=== PATIENT | female | born 1935 | race African-American/Black ===

== ENCOUNTER 2017-09-20 20:48 | Inpatient (IN) | payer MEDICARE, OTHER ==
[2017-09-20] MEDS ORDERED: Fentanyl 100 MCG/2 ML VIAL SLOW IVP PRN (22:48)
[2017-09-20] MEDS ORDERED: Ondansetron HCl/PF 4 MG/2 ML Vial IVP PRN (22:49)
[2017-09-20] MEDS ORDERED: Calcium Carbonate 500 MG ChewTAB PO PRN (22:50)
[2017-09-20 23:01] VITALS: BMI 31.6
[2017-09-20] MEDS ORDERED: traMADol HCl 50 MG TAB PO PRN (23:15)
[2017-09-21] MEDS: Piperacillin/Tazobactam 3.375 GM in Sodium Chloride 0.9% 100 ML IVPB SCH ×4 (00:09→17:56)
[2017-09-21] MEDS: Dextrose 5 % And 0.9 % NaCl 1,000 ML IV SCH ×3 (00:09→17:53)
[2017-09-21] MEDS: Acetaminophen 325 MG TAB PO PRN (00:10)
[2017-09-21] MEDS: traMADol HCl 50 MG TAB PO PRN ×3 (00:26→15:36)
[2017-09-21 05:31] LABS: #Basophils 0.1 thou/uL (0.0-0.2); #Lymphocytes 2.1 thou/uL (1.20-3.40); #Monocytes 0.5 thou/uL (0.11-0.59); #Neutrophils 5.6 thou/uL (1.40-6.50); %Eosinophils 0.2 % (0.0-10.0); %Lymphocytes 24.7 % (21.0-51.0); %Monocytes 6.2 % (0.0-10.0); Hemoglobin 11.2 g/dL (12.0-16.0); Mean Corpuscular HGB CONC 33.1 g/dL (32.0-36.0); Mean Corpuscular Hemoglobin 33.5 pg (27.0-31.0); Mean Platelet Volume 6.5 fL (7.4-10.4); Platelet Count 196 thou/uL (130-400); RBC Distribution Width 12.3 % (11.5-14.5); Red Blood Cell (RBC) Count 3.34 mill/uL (4.20-5.40); White Blood Cell (WBC) Count 8.3 thou/uL (4.8-10.8)
[2017-09-21 05:37] LABS: INR-International Normal Ratio 1.1; Prothrombin Time 14.6 SEC (12.0-14.7)
[2017-09-21 06:03] LABS: ALT (SGPT) 78 U/L (8-55); AST (SGOT) 102 U/L (5-34); Albumin 3.3 g/dL (3.4-4.8); Alkaline Phosphatase 188 U/L (40-150); Anion Gap 6 mmol/L (10-20); BUN (Urea Nitrogen) 10 mg/dL (9.8-20.1); Bilirubin, Total 1.2 mg/dL (0.2-1.2); Calc. Creatinine Clearance 72 mL/min (70-130); Calcium 8.5 mg/dL (7.8-10.44); Carbon Dioxide 28 mmol/L (23-31); Chloride 106 mmol/L (98-107); Estimated GFR-MDRD 79; Globulin 3.1 g/dL (2.4-3.5); Glucose 130 mg/dL (83-110); Lipase 4 U/L (8-78); Potassium 3.6 mmol/L (3.5-5.1); Protein, Total 6.4 g/dL (6.0-8.3); Sodium 136 mmol/L (136-145)
--- NOTE | 2017-09-21 07:14 | HP ---
HISTORY OF PRESENT ILLNESS: Ms. Ackerman is a pleasant 81-year-old -[place] female. She is ac companied by 2 daughters. She is a transfer from [facility] today for choledocholithiasis and sym ptomatic cholelithiasis. ERCP was not available there at hospital this weekend. She has been having some epigastric pain and vomiting for about the past 3 days and has not eaten much. She has had no fever or chills. For the past 3 months, she has been having nausea several times per day and some vo miting at times. Sometimes, it is worse with eating, other times does not really matter. She has richmond d no fever or chills. She has noted no icterus or jaundice. She has had a little bit of constipatio n, which she attributes to taking Columbia for chronic arthritis. She has been vomiting mainly clear th ings, had a little bit of coffee ground in color today apparently. She has really been unable take h er blood pressure regular medications secondary to the nausea and vomiting. She was at [facility] today in the emergency room, she was found to have mildly elevated LFTs. Her vital signs w ere stable. She had glucose of 114, lipase of 6, AST and ALT of 131 and 82 and a hematocrit of 36. Urinalysis was negative. Troponins were negative. Creatinine was 0.9, BUN 15, alkaline phosphatase was 234, AST and ALT were 131 and 82. Bilirubin was 2. Lactic acid 0.7. White count 8.1, platelets 229. Ultrasound showed cholelithiasis without any gallbladder wall thickening or free fluid. There was also a 1.6 cm common bile duct and 1 cm echogenic focus in the distal, bile duct suggestive of a stone. At the hospital there, she received IV fluids, fentanyl 50 one time, Zofran, Pepcid, normal saline and Zosyn. Presently, she states she has some mild pain. She has had no fever or chills. Sh nicki has had no further vomiting. Her pain is under control. Last received pain medicine at 6:00 p.m. ALLERGIES: None known. PAST MEDICAL HISTORY: Osteoarthritis, for which she takes hydrocodone, hypertension. 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 MEDICATIONS: She is on Columbia 10 every 6 hours p.r.n. for pain, bisoprolol 5/6.25 daily in the mornin g, losartan 50 mg daily in the morning, amlodipine 5 mg daily in the morning, Premarin 0.625 mg daily in the morning. SOCIAL HISTORY: The patient does not smoke, drink or use drugs. REVIEW OF SYSTEMS: Negative for chest pain, shortness of breath, dyspnea on exertion, dysphagia, eder nophagia. She has had a previous screening colonoscopy. She has no rectal bleeding. She has some c onstipation. She denies any history of lung disease or heart disease. ASSESSMENT: Symptomatic cholelithiasis with choledocholithiasis. There are no signs of cholangitis or pancreatitis at this time. Stone in her bile duct, it is probably there for some time. She has b een symptomatic for several months, but just worse in the past 3 days. PLAN: ERCP tomorrow with attempted removal of large common duct stone. I have explained that this m ay be able to be removed simply with a balloon or may require lithotripsy. Finally, if it cannot be removed, we have to place the stent to ensure we prevent obstruction have that removed at a lat er date once it has worn down to a smaller size or possibly transfer to another facility. In [facility], she will have a cholecystectomy once we clear her duct due to the number of stones and recurrent s ymptoms she has had over the time. We will place her on Protonix and she had a little bit of hematemesis. Zofran. Continue Zosyn. Con tinue her blood pressure medicines, antiemetics and IV fluids. We will repeat labs in the morning. Risks, benefits, and possible complications of ERCP including perforation, bleeding, reaction to medi cation, aspiration and pancreatitis were explained to the patient's daughters with the drawing of the anatomy.
[2017-09-21] MEDS: Pantoprazole 40 MG VIAL IVP SCH (08:43)
[2017-09-21] MEDS: Amlodipine 5 MG TAB PO SCH (08:44)
[2017-09-21] MEDS: Losartan 25 MG TAB PO SCH (08:44)
[2017-09-21] MEDS: Bisoprolol Fumarate/HCTZ 5 mg/6.25 mg Tablet PO SCH (08:51)
[2017-09-21] MEDS ORDERED: Fentanyl 100 MCG/2 ML VIAL ONE (11:57)
[2017-09-21] MEDS ORDERED: Iothalamate Meglumine 60% 50 ML VIAL FS ONE (12:07)
[2017-09-21] MEDS ORDERED: B & O ONE (12:07)
[2017-09-21] MEDS ORDERED: Indomethacin 50 MG SUPP ONE (12:08)
[2017-09-21] MEDS ORDERED: Promethazine HCl 25 MG/ML VIAL IM PRN (13:17)
[2017-09-21] MEDS ORDERED: HYDROmorphone 2 MG/ML VIAL SLOW IVP PRN (13:17)
[2017-09-21] MEDS ORDERED: Promethazine HCl 25 MG/ML VIAL SLOW IVP PRN (13:17)
[2017-09-21] MEDS ORDERED: Ondansetron HCl/PF 4 MG/2 ML Vial IVP PRN (13:17)
[2017-09-21] MEDS ORDERED: Promethazine HCl 25 MG/ML VIAL ONE (13:33)
--- NOTE | 2017-09-21 13:57 | OP ---
PREPROCEDURE DIAGNOSES: Abdominal pain 3 months, worsening over the past 3-4 days with choledocholit hiasis noted on ultrasound at [facility]. PROCEDURES PREFORMED: Endoscopic retrograde cholangiopancreatography with sphincterotomy, removal of common bile duct stone. ANESTHESIA: General. The patient received a liter of fluid beforehand as well as 100 mg of Indocin suppository for post-ERCP pancreatitis prophylaxis. RECOMMENDATIONS: Surgical consultation for laparoscopic cholecystectomy. PROCEDURE IN DETAIL: After the patient was informed about the risks, benefits, and possible complica tions of endoscopy including perforation, bleeding, reactions to medication and aspiration, informed consent was obtained. The patient was brought to the endoscopy suite where she was prepped and drape d in a standard fashion. Once she was comfortable, she was intubated and then placed in the prone po sition on fluoroscopy table. Bill Adjuster film was obtained. The endoscope was advanced through the esopha gavin, stomach and second and third portion of duodenum and slowly removed. There was good visualizati on of mucosa. The ampulla was brought into view and was bulging into the duodenum, there was clear y ellow bile emanating from it. Free cannulation was obtained and a wire was advanced up in the common bile duct and intrahepatic ducts. A cholangiogram revealed 2 filling defects in the mid common bile duct. The duct was dilated to about 18 mm. The gallbladder did fill and was full with multiple sto laquita. A sphincterotomy was performed and 18 mm balloon was used to sweep two large stones from the bi le duct. After this, occlusion cholangiogram was performed and was normal. The duct was swept 2 or 3 more times and no further stones came out, no further filling defects were noted. The scope was re moved. The patient extubated and brought to recovery room in stable condition.
--- NOTE | 2017-09-21 15:06 | RAD ---
ERCP: HISTORY: ERCP. COMPARISON: None. FINDINGS: There is cannulation of the common bile duct. The extrahepatic biliary system is dilated. No signif icant contrast is seen within the bowel. IMPRESSION: Extrahepatic biliary dilatation. POS: ELISHA
[2017-09-21] MEDS ORDERED: Lidocaine 1% PF 5 ML VIAL ONE (15:07)
[2017-09-21] MEDS ORDERED: Dexamethasone 20 MG/5 ML VIAL ONE (15:07)
[2017-09-21] MEDS ORDERED: Glycopyrrolate 0.2 MG/ML 5 ML SYRINGE ONE (15:07)
[2017-09-21] MEDS ORDERED: Ondansetron HCl/PF 4 MG/2 ML Vial ONE (15:07)
[2017-09-21] MEDS ORDERED: Propofol 200 MG/20 ML VIAL ONE (15:07)
--- NOTE | 2017-09-21 18:44 | CON ---
DATE OF CONSULTATION: 09/21/2017 This is a consult note from Dr. Hayden, [facility]. HISTORY OF PRESENT ILLNESS: This is a 81-year-old female, who presented to [facility] with elevated liver function test and evidence of choledocholithiasis. She was transferred to [facility] in order to obtain an ERCP. Dr. Hayden performed ERCP today without complication. The patient is comfortable. She is sleeping this afternoon. Family is not sure of any previous gallstones, wenceslao dice, or pancreatitis. PAST MEDICAL HISTORY: Includes osteoarthritis, hypertension. PAST SURGICAL HISTORY: Includes hysterectomy, ERCP. MEDICATIONS: Chokio, bisoprolol, losartan, amlodipine, Premarin. ALLERGIES: No known drug allergies. SOCIAL HISTORY: No smoking, alcohol or other drugs. REVIEW OF SYSTEMS: Ten-system review of systems otherwise negative unless described above. FAMILY HISTORY: Noncontributory to GI malignancy or anesthetic related complication. PHYSICAL EXAMINATION: VITAL SIGNS: Her pulse is 45, respirations are 14, blood pressure 141/80. HEENT: Sclerae are anicteric. Oropharynx clear. NECK: No lymphadenopathy. CHEST: Clear. HEART: Regular rate and rhythm. ABDOMEN: Soft, it is mildly tender in the epigastric and right upper quadrant. No guarding or rebou nd. No abdominal hernias. EXTREMITIES: No ischemia or edema to extremity. LABORATORY DATA: White blood cell count this morning is 8, hemoglobin 11, platelet count is 196. So dium 136, potassium 3.6, creatinine 0.84. ASSESSMENT: Cholelithiasis with history of choledocholithiasis. PLAN: Laparoscopic cholecystectomy tomorrow to prevent recurrence. Risks, benefits, and alternative s discussed with the daughters. They give consent. We will do this today.
[2017-09-21] MEDS ORDERED: Amlodipine 5 MG TAB PO SCH (18:45)
[2017-09-21] MEDS ORDERED: hydrALAZINE 20 MG/ML VIAL SLOW IVP PRN (18:45)
[2017-09-22] MEDS: Piperacillin/Tazobactam 3.375 GM in Sodium Chloride 0.9% 100 ML IVPB SCH ×2 (00:53→06:42)
[2017-09-22] MEDS: traMADol HCl 50 MG TAB PO PRN (02:44)
[2017-09-22] MEDS: Acetaminophen 325 MG TAB PO PRN (02:44)
[2017-09-22 05:49] LABS: #Lymphocytes 1.9 thou/uL (1.20-3.40); #Monocytes 0.6 thou/uL (0.11-0.59); #Neutrophils 4.6 thou/uL (1.40-6.50); %Basophils 0.2 % (0.0-1.0); %Eosinophils 0.1 % (0.0-10.0); %Lymphocytes 26.7 % (21.0-51.0); %Monocytes 7.9 % (0.0-10.0); %Neutrophils 65.2 % (42.0-75.0); Hemoglobin 11.8 g/dL (12.0-16.0); Mean Corpuscular HGB CONC 32.6 g/dL (32.0-36.0); Mean Corpuscular Hemoglobin 32.3 pg (27.0-31.0); Mean Corpuscular Volume 98.9 fl (81.0-99.0); Mean Platelet Volume 6.5 fL (7.4-10.4); Platelet Count 220 thou/uL (130-400); RBC Distribution Width 12.1 % (11.5-14.5); Red Blood Cell (RBC) Count 3.66 mill/uL (4.20-5.40); White Blood Cell (WBC) Count 7.1 thou/uL (4.8-10.8)
[2017-09-22 06:17] LABS: ALT (SGPT) 74 U/L (8-55); AST (SGOT) 80 U/L (5-34); Albumin 3.3 g/dL (3.4-4.8); Alkaline Phosphatase 172 U/L (40-150); Anion Gap 11 mmol/L (10-20); BUN (Urea Nitrogen) 12 mg/dL (9.8-20.1); Bilirubin, Total 0.9 mg/dL (0.2-1.2); Calc. Creatinine Clearance 70 mL/min (70-130); Calcium 8.6 mg/dL (7.8-10.44); Carbon Dioxide 23 mmol/L (23-31); Chloride 105 mmol/L (98-107); Estimated GFR-MDRD 77; Globulin 3.3 g/dL (2.4-3.5); Glucose 124 mg/dL (83-110); Lipase 15 U/L (8-78); Potassium 3.5 mmol/L (3.5-5.1); Protein, Total 6.6 g/dL (6.0-8.3); Sodium 135 mmol/L (136-145)
[2017-09-22] MEDS ORDERED: Bupivacaine/Epinephrine 0.25% 30 ML VIAL ONE (06:50)
[2017-09-22] MEDS ORDERED: Fentanyl 100 MCG/2 ML VIAL ONE ×2 (07:37)
--- NOTE | 2017-09-22 09:12 | OP ---
DATE OF PROCEDURE: 09/22/2017 PREOPERATIVE DIAGNOSES: Symptomatic gallstones, history of choledocholithiasis, status post endoscop ic retrograde cholangiopancreatography. POSTOPERATIVE DIAGNOSES: Symptomatic gallstones, history of choledocholithiasis, status post endosco pic retrograde cholangiopancreatography. PROCEDURE: Laparoscopic cholecystectomy. SURGEON: Rosalio Donahue M.D. ANESTHESIA: General. ESTIMATED BLOOD LOSS: Minimal. COMPLICATIONS: None. SPECIMEN: Gallbladder. FINDINGS: Chronic cholecystitis. PROCEDURE IN DETAIL: The patient was taken to the Operating Room and laid supine on the Operating Kelly m table. After general anesthetic was obtained, the abdomen was prepped and draped in a sterile fashi on. A curved incision was made below the umbilicus. Cautery was used to dissect down to the umbilical fascia. Umbilical fascia was incised and held up using a Gunnar. The abdominal cavity was entered us ing a Alla clamp. Holding stitch of Vicryl was placed on each side of the fascia. Deutsch trocar was placed. High-flow pneumoperitoneum was obtained. An upper midline 5-mm port and two right upper quadr ant 5-mm ports were placed under direct camera visualization. The gallbladder was retracted from the gallbladder fossa. The peritoneum of the gallbladder was opened anteriorly and posteriorly. The criti nishant view triangle was seen showing only the cystic duct and cystic artery branching from medial to la teral. There were no other branching structures. Two clips were placed proximally on the cystic duct and one laterally. It was cut using laparoscopic scissors. The cystic artery was taken in the same wa y. Electrocautery was then used to dissect the gallbladder out of the gallbladder fossa. The gallblad camelia was placed in an Endo catch bag and brought out through the Deutsch. There was no bleeding or bile in the liver bed. The cystic duct stump and cystic artery stump were intact without evidence of extr avasation or bleeding. All port sites were infiltrated using local anesthesia. All ports were removed under camera visualization. Pneumoperitoneum was let down. The Vicryl was used to close the fascial defect below the umbilicus. All incisions were irrigated and closed using 4-0 Monocryl and DermaBond. The patient was en route to Recovery in stable condition. All instrument counts, needle counts and l ap counts were correct.
[2017-09-22] MEDS ORDERED: SUGAMMADEX SODIUM 500 MG/5 ML VIAL ONE (09:17)
[2017-09-22] MEDS ORDERED: HYDROmorphone 0.5 MG/0.5 ML SYRINGE ONE (09:28)
[2017-09-22] MEDS ORDERED: Ondansetron HCl/PF 4 MG/2 ML Vial IVP PRN ×2 (09:33→10:24)
[2017-09-22] MEDS ORDERED: Morphine Sulfate 2 MG/ML SYRINGE SLOW IVP PRN (09:33)
[2017-09-22] MEDS ORDERED: Promethazine HCl 25 MG/ML VIAL IM PRN ×2 (09:33→10:24)
[2017-09-22] MEDS ORDERED: Promethazine HCl 25 MG/ML VIAL SLOW IVP PRN (09:33)
[2017-09-22] MEDS ORDERED: HYDROmorphone 2 MG/ML VIAL SLOW IVP PRN (09:33)
[2017-09-22] MEDS ORDERED: Meperidine HCl/PF 25 MG/ML VIAL SLOW IVP PRN (09:33)
[2017-09-22] MEDS ORDERED: Ketorolac Tromethamine 30 MG/ML VIAL IVP PRN (09:33)
[2017-09-22] MEDS ORDERED: Dextrose 50% Abboject 50 ML SYRINGE SLOW IVP PRN (10:24)
[2017-09-22] MEDS ORDERED: Calcium Carbonate 500 MG ChewTAB PO PRN (10:24)
[2017-09-22] MEDS ORDERED: hydrALAZINE 20 MG/ML VIAL SLOW IVP PRN (10:24)
[2017-09-22] MEDS ORDERED: Mag-Al 1200 mg/1200 mg/30 ML UDCUP PO PRN (10:24)
[2017-09-22] MEDS ORDERED: Dextrose 5% in Water 1,000 ML IV PRN (10:24)
[2017-09-22] MEDS ORDERED: Sodium Chloride 0.9% 1,000 ML IV SCH (10:24)
[2017-09-22] MEDS ORDERED: HYDROcodone/Acetaminophen 10/325 mg Tablet PO PRN (10:24)
[2017-09-22] MEDS ORDERED: Morphine 4 MG/ML VIAL SLOW IVP PRN ×2 (10:30→10:45)
[2017-09-22] MEDS: Losartan 25 MG TAB PO SCH (10:36)
[2017-09-22] MEDS: Amlodipine 5 MG TAB PO SCH (10:37)
[2017-09-22] MEDS: Pantoprazole 40 MG VIAL IVP SCH (11:45)
[2017-09-22] MEDS: Bisoprolol Fumarate/HCTZ 5 mg/6.25 mg Tablet PO SCH (11:57)
[2017-09-22] MEDS ORDERED: Propofol 200 MG/20 ML VIAL ONE (15:10)
[2017-09-22] MEDS ORDERED: Labetalol 100 MG/20 ML MDV ONE (15:10)
[2017-09-22] MEDS ORDERED: Glycopyrrolate 0.2 MG/ML 5 ML SYRINGE ONE (15:10)
[2017-09-22] MEDS ORDERED: Lidocaine 1% PF 5 ML VIAL ONE (15:10)
[2017-09-22] MEDS ORDERED: Ondansetron HCl/PF 4 MG/2 ML Vial ONE (15:10)
[2017-09-22] MEDS ORDERED: Esmolol 100 MG/10 ML VIAL ONE (15:10)
[2017-09-22 16:24] VITALS: BP 113/75; TEMP 98.5
--- NOTE | 2017-09-22 19:06 | PRG ---
DATE OF SERVICE: 09/22/2017 SUBJECTIVE: Ms. Ackerman had her gallbladder out. She is doing pretty well. She was started on some liquids. She has had little bit pain in her right shoulder blade. Dr. Donahue said she can go home today if she feels well enough and is able to tolerate liquids. If not, she will stay overnight. She did well after her ERCP yesterday and removal of large common bile duct stone. OBJECTIVE: VITAL SIGNS: Temperature 97.9, pulse 68, blood pressure 120/68. LUNGS: Clear. HEART: Regular rate and rhythm without clicks or murmurs. ABDOMEN: Soft, nontender. LABORATORY DATA: White count 7.1, hemoglobin 11.8, platelet count 220. INR 1.1. Chemistries: Lipa se is 15, AST and ALT are down to 80 and 74 and alkaline phosphatase of 172. ASSESSMENT: 1. Choledocholithiasis, resolved. 2. Symptomatic gallstones, resolved, status post laparoscopic cholecystectomy. PLAN: She will either go home this afternoon or tomorrow per General Surgery and can follow up. She has scheduled followup there. I told her I would be happy to see her back in 1-2 weeks.
[2017-09-22] MEDS ORDERED: Famotidine/PF 20 mg/2ml Vial SLOW IVP SCH (21:00)
[2017-09-22] MEDS ORDERED: Famotidine 20 MG TAB PO SCH (21:00)
== END 2017-09-22 17:29 | disposition home or self-care (01) | DRG 418 ==
LOC: SURG A 21:39
PROVIDERS: ADMIT Internal Medicine Gastroenterology; ATTEND Internal Medicine Gastroenterology
PROC: 0FC98ZZ Extirpation of Matter from Common Bile Duct, Via Natural or Artificial Opening Endoscopic (ICD-10-PCS; 2017-09-21)
PROC: 0FT44ZZ Resection of Gallbladder, Percutaneous Endoscopic Approach (ICD-10-PCS; principal; 2017-09-22)
DX: K80.64 Calculus of gallbladder and bile duct with chronic cholecystitis without obstruction (principal); K92.0 Hematemesis; I10 Essential (primary) hypertension; M19.90 Unspecified osteoarthritis, unspecified site; Z79.899 Other long term (current) drug therapy
CPT/HCPCS: 36415; 74330; 80053; 83690; 85025; 85610; 88304; 93005; 93010; C9113; J1100; J1170; J1610; J2001; J2270; J2405; J2543; J2550; J2704; J3010; J7050; Q9961

== ENCOUNTER 2020-10-10 19:30 | Outpatient (CLI) | payer MEDICARE | END 2020-10-10 19:31 | disposition home or self-care (01) | LOC: SLEEPLAB 19:30 | PROVIDERS: ATTEND Family Medicine | DX: G47.33 Obstructive sleep apnea (adult) (pediatric) (principal); R53.83 Other fatigue; R06.83 Snoring; G47.10 Hypersomnia, unspecified; G47.00 Insomnia, unspecified; I10 Essential (primary) hypertension | CPT/HCPCS: 95810 ==